=== PATIENT | male | born 1945 | race African-American/Black ===

== ENCOUNTER → 2017-02-27 | Outpatient (CLI) | payer MEDICARE, OTHER ==
[~2017-02-27] MED LIST: ASCO500C6 PO; BIDIL PO; CARV12.545 PO; FURO-152 PO; LOSA50TA20 PO; OMEG1CAP17 PO; RIVA20TA PO; SPIR25TA4 PO; TAMS0.4C31 PO
[2017-02-27 12:12] LABS: ANION GAP 11; CALCIUM 8.6 mg/dL (8.5-10.1); CARBON DIOXIDE 28 mEq/L (21-32); CHLORIDE 106 mEq/L (98-107); INDEX HEMOLYSI 1 (1-3); INDEX ICTERIC 1 (1-4); INDEX LIPEMIC 1 (1-3); MAGNESIUM 2.2 mg/dL (1.8-2.4); UREA NITROGEN BLOOD 15 mg/dL (7-21)
[2017-02-27 12:19] LABS: NT PRO B-TYPE NATRIURETIC PEP 3451 pg/mL (5-125); eGFR > 60 mL/min (>60)
== END | disposition home or self-care (01) ==
LOC: LAB 11:37
PROVIDERS: ATTEND Internal Medicine
DX: I42.9 Cardiomyopathy, unspecified (principal); I48.92 Unspecified atrial flutter
CPT/HCPCS: 36415; 80048; 83735; 83880

== ENCOUNTER 2018-02-28 07:55 | Emergency (ER) | payer MEDICARE, OTHER ==
[~2018-02-28] VITALS: Ht 180.3 cm; Wt 100.0 kg
[2018-02-28 09:36] LABS: BASOPHILS % 1.2 % (0.0-2.0); CHLORIDE 104 mEq/L (98-107); EOSINOPHILS % 5.1 % (0.0-5.0); HEMATOCRIT. 39.2 % (42.0-52.0); HEMOGLOBIN. 13.2 g/dL (14.0-18.0); LYMPHOCYTES % 31.9 % (20.0-50.0); MEAN CORPUSCULAR HEMOGLOBIN 31.1 pg (28.0-32.0); MEAN CORPUSCULAR VOLUME 92.1 fL (80.0-94.0); MEAN PLATELET VOLUME 9.5 fl (7.4-10.4); MONOCYTES % 12.2 % (2.0-8.0); NEUTROPHILS % 49.6 % (40.0-76.0); PLATELET 136 x1000/uL (130-400); RED BLOOD CELL COUNT 4.25 mill/uL (4.7-6.1); RED CELL DISTRIBUTION WIDTH 13.9 % (11.6-14.6)
[2018-02-28 09:36] LABS: CLARITY URINE CLEAR (CLEAR); COLOR URINE YELLOW (YELLOW); KETONES URINE NEGATIVE (NEGATIVE); LEUKOCYTE ESTERASE URINE NEGATIVE (NEGATIVE); NITRITE URINE NEGATIVE (NEGATIVE); OCCULT BLOOD URINE NEGATIVE (NEGATIVE); PROTEIN URINE NEGATIVE (NEGATIVE); SPECIFIC GRAVITY URINE 1.012 (1.005-1.030); UROBILINOGEN URINE 0.2 E.U./dL (0.2-1.0)
[2018-02-28 09:38] LABS: INR 1.5
[2018-02-28 11:58] VITALS: BP 133/66
== END 2018-02-28 12:01 | disposition home or self-care (01) ==
LOC: ER 07:55
DX: R10.9 Unspecified abdominal pain (principal); M62.830 Muscle spasm of back; I10 Essential (primary) hypertension; I48.91 Unspecified atrial fibrillation; I25.10 Atherosclerotic heart disease of native coronary artery without angina pectoris; K56.7 Ileus, unspecified; Z88.2 Allergy status to sulfonamides
CPT/HCPCS: 36415; 71045; 74176; 80053; 81003; 83690; 84484; 85025; 85610; 93005; 99285

== ENCOUNTER 2018-06-09 16:16 | Emergency (ER) | payer MEDICARE, OTHER ==
[~2018-06-09] VITALS: Ht 182.9 cm; Wt 91.0 kg
[~2018-06-09 16:16] MED LIST changes: -SPIR25TA4 PO; +SPIR25TA6 PO
[2018-06-09 17:25] LABS: BASOPHILS % 0.9 % (0.0-2.0); EOSINOPHILS % 4.2 % (0.0-5.0); HEMATOCRIT. 39.1 % (42.0-52.0); HEMOGLOBIN. 13.2 g/dL (14.0-18.0); LYMPHOCYTES % 35.1 % (20.0-50.0); MEAN CORPUSCULAR HEMOGLOBIN 31.2 pg (28.0-32.0); MEAN CORPUSCULAR VOLUME 92.2 fL (80.0-94.0); MEAN PLATELET VOLUME 9.3 fl (7.4-10.4); MONOCYTES % 11.6 % (2.0-8.0); NEUTROPHILS % 48.2 % (40.0-76.0); PLATELET 146 x1000/uL (130-400); RED BLOOD CELL COUNT 4.24 mill/uL (4.7-6.1); RED CELL DISTRIBUTION WIDTH 14.7 % (11.6-14.6)
[2018-06-09 17:28] LABS: CHLORIDE 103 mEq/L (98-107)
[2018-06-09 18:07] LABS: CLARITY URINE CLEAR (CLEAR); COLOR URINE YELLOW (YELLOW); KETONES URINE TRACE (NEGATIVE); LEUKOCYTE ESTERASE URINE NEGATIVE (NEGATIVE); NITRITE URINE NEGATIVE (NEGATIVE); OCCULT BLOOD URINE NEGATIVE (NEGATIVE); PROTEIN URINE NEGATIVE (NEGATIVE); UROBILINOGEN URINE 0.2 E.U./dL (0.2-1.0)
[2018-06-09] MEDS ORDERED: SODIUM CHLORIDE 0.9% 500 ML IV ONE (22:31)
[2018-06-09 23:06] LABS: BASOPHILS % 0.8 % (0.0-2.0); EOSINOPHILS % 4.9 % (0.0-5.0); HEMATOCRIT. 38.3 % (42.0-52.0); HEMOGLOBIN. 12.8 g/dL (14.0-18.0); LYMPHOCYTES % 39.6 % (20.0-50.0); MEAN CORPUSCULAR HEMOGLOBIN 31.1 pg (28.0-32.0); MEAN PLATELET VOLUME 9.3 fl (7.4-10.4); MONOCYTES % 12.9 % (2.0-8.0); NEUTROPHILS % 41.8 % (40.0-76.0); PLATELET 139 x1000/uL (130-400); RED BLOOD CELL COUNT 4.12 mill/uL (4.7-6.1); RED CELL DISTRIBUTION WIDTH 15.1 % (11.6-14.6)
[2018-06-09 23:10] LABS: CHLORIDE 103 mEq/L (98-107)
[2018-06-09 23:12] LABS: INR 1.3; PROTHROMBIN TIME 13.2 sec (9.1-11.1)
[2018-06-10 02:16] VITALS: BP 152/89
[2018-06-10] MEDS ORDERED: IOHEXOL-300 100 ML BOTTLE ONE (06:33)
== END 2018-06-10 02:19 | disposition home or self-care (01) ==
LOC: ER 17:02
DX: R10.9 Unspecified abdominal pain (principal); M79.1 Myalgia; I10 Essential (primary) hypertension; E78.00 Pure hypercholesterolemia, unspecified; Z79.899 Other long term (current) drug therapy; Z98.890 Other specified postprocedural states; Z88.2 Allergy status to sulfonamides; Z45.018 Encounter for adjustment and management of other part of cardiac pacemaker
CPT/HCPCS: 36415; 74177; 80053; 81003; 83690; 85025; 85610; 99285; J7030; J7040; Q9967

== ENCOUNTER 2019-08-06 20:56 | Emergency (ER) | payer MEDICARE, OTHER ==
[~2019-08-06] VITALS: Ht 185.4 cm; Wt 95.0 kg
[~2019-08-06 20:56] MED LIST changes: -LOSA50TA20 PO; +LOSA50TA41 PO
[2019-08-06] MEDS ORDERED: SODIUM CHLORIDE 0.9% 1,000 ML IV ONE (22:30)
[2019-08-06 23:14] LABS: HEMOGLOBIN 12.8 g/dL (14.0-18.0); MEAN CORPUSCULAR HEMOGLOBIN 31.5 pg (28.0-32.0); MEAN CORPUSCULAR VOLUME 93.8 fL (80.0-94.0); PLATELET 121 x1000/uL (130-400); RED BLOOD CELL COUNT 4.05 mill/uL (4.7-6.1); RED CELL DISTRIBUTION WIDTH 14.3 % (11.6-14.6)
[2019-08-06 23:18] LABS: CHLORIDE 109 mEq/L (98-107)
[2019-08-07 00:49] VITALS: BP 144/76
== END 2019-08-07 00:46 | disposition home or self-care (01) ==
LOC: ER 20:56
DX: I95.9 Hypotension, unspecified (principal); I13.10 Hypertensive heart and chronic kidney disease without heart failure, with stage 1 through stage 4 chronic kidney disease, or unspecified chronic kidney disease; N18.9 Chronic kidney disease, unspecified; R74.8 Abnormal levels of other serum enzymes; Z95.0 Presence of cardiac pacemaker
CPT/HCPCS: 36415; 80053; 85027; 96360; 99283; J7030

== ENCOUNTER 2022-12-12 15:53 | Emergency (ER) | payer MEDICARE, OTHER ==
[~2022-12-12] VITALS: Ht 182.9 cm; Wt 82.0 kg
[2022-12-12 17:14] LABS: EOSINOPHILS % 2.8 % (0.0-5.0); HEMATOCRIT. 43.3 % (42.0-52.0); HEMOGLOBIN. 14.2 g/dL (14.0-18.0); LYMPHOCYTES % 28.6 % (20.0-50.0); MEAN CORPUSCULAR HEMOGLOBIN 30.8 pg (28.0-32.0); MEAN CORPUSCULAR VOLUME 94.2 fL (80.0-94.0); MEAN PLATELET VOLUME 10.1 fl (7.4-10.4); NEUTROPHILS % 56.6 % (40.0-76.0); PLATELET 148 x1000/uL (130-400); RED BLOOD CELL COUNT 4.59 mill/uL (4.7-6.1); RED CELL DISTRIBUTION WIDTH 15.2 % (11.6-14.6)
[2022-12-12 17:22] LABS: CHLORIDE 107 mEq/L (98-107)
[2022-12-12 18:19] LABS: CLARITY URINE CLEAR (CLEAR); COLOR URINE YELLOW (YELLOW); KETONES URINE TRACE (NEGATIVE); LEUKOCYTE ESTERASE URINE NEGATIVE (NEGATIVE); NITRITE URINE NEGATIVE (NEGATIVE); OCCULT BLOOD URINE NEGATIVE (NEGATIVE); PROTEIN URINE TRACE (NEGATIVE); SPECIFIC GRAVITY URINE 1.023 (1.005-1.030)
[2022-12-12 20:00] VITALS: BP 141/82
== END 2022-12-12 23:21 | disposition home or self-care (01) ==
LOC: ER 15:53 → CANBEDREQ 12-14 09:37
DX: I95.9 Hypotension, unspecified (principal); R53.1 Weakness; I44.0 Atrioventricular block, first degree; I11.9 Hypertensive heart disease without heart failure; Z20.822 Contact with and (suspected) exposure to COVID-19; Z95.0 Presence of cardiac pacemaker
CPT/HCPCS: 36415; 70450; 71045; 80053; 81003; 83605; 83880; 84484; 85025; 87040; 87086; 87426; 87804; 93005; 99285; C9803

== ENCOUNTER 2025-04-15 18:27 | Emergency (ER) | payer MEDICARE, BC ==
[~2025-04-15] VITALS: Ht 177.8 cm; Wt 92.0 kg
[~2025-04-15 18:27] MED LIST changes: +AMIO100T4 PO; +ASCO500C19 PO; -ASCO500C6 PO; +CARV6.2548 PO; -FURO-152 PO; -LOSA50TA41 PO; +OMEG-118 MT; +SACU1TAB PO; +TEMA15CA MT
[2025-04-15 18:31] VITALS: O2SAT 97
[2025-04-15] MEDS: IBUPROFEN 600MG TABLET PO STA (20:18)
[2025-04-15] MEDS ORDERED: T3 PO (21:27)
[2025-04-15] MEDS: HYDROCODONE/ACETAMINOPHEN 5/325MG TABLET PO ONE (21:40)
[2025-04-15 21:41] VITALS: BP 98/71; PULSE 78; RESP 19; TEMP 36.6; O2SAT 97
== END 2025-04-15 21:45 | disposition home or self-care (01) ==
LOC: ER 18:27
DX: S22.32XA Fracture of one rib, left side, initial encounter for closed fracture (principal); I10 Essential (primary) hypertension; Z88.2 Allergy status to sulfonamides; Z79.899 Other long term (current) drug therapy; Z98.890 Other specified postprocedural states; W01.0XXA Fall on same level from slipping, tripping and stumbling without subsequent striking against object, initial encounter; Y93.89 Activity, other specified; Y92.89 Other specified places as the place of occurrence of the external cause; Y99.8 Other external cause status
CPT/HCPCS: 71250; 99284

== ENCOUNTER 2025-06-06 08:11 | Emergency (ER) | payer BC, MEDICARE ==
[~2025-06-06] VITALS: Ht 172.7 cm; Wt 75.0 kg
[~2025-06-06 08:11] MED LIST changes: -ASCO500C19 PO; +BENZ200C52 PO; -BIDIL PO; -CARV12.545 PO; +DOCU-422 PO; +EMPA10TA PO; +FURO40TA5 PO; +ISOS1TAB3 PO; -OMEG1CAP17 PO; -SACU1TAB PO; -SPIR25TA6 PO
[2025-06-06 08:15] VITALS: O2SAT 95
[2025-06-06] MEDS: IBUPROFEN 400MG TABLET PO ONE (08:53)
[2025-06-06] MEDS: HYDROCODONE/ACETAMINOPHEN 5/325MG TABLET PO ONE (08:53)
[2025-06-06] MEDS: LIDOCAINE 5% PATCH TOP SCH (08:56)
[2025-06-06] MEDS ORDERED: TRAM50TA3 MT ×2 (10:01→11:11)
[2025-06-06] MEDS ORDERED: ACET-2708 MT (10:01)
[2025-06-06] MEDS ORDERED: LIDO-53 TP (11:11)
[2025-06-06 11:28] VITALS: BP 118/83; PULSE 91; RESP 18; TEMP 36.6; O2SAT 95
== END 2025-06-06 11:27 | disposition home or self-care (01) ==
LOC: ER 08:11
DX: S22.31XA Fracture of one rib, right side, initial encounter for closed fracture (principal); I11.0 Hypertensive heart disease with heart failure; I50.9 Heart failure, unspecified; Z79.899 Other long term (current) drug therapy; Z79.84 Long term (current) use of oral hypoglycemic drugs; Z79.01 Long term (current) use of anticoagulants; Z88.2 Allergy status to sulfonamides; W01.0XXA Fall on same level from slipping, tripping and stumbling without subsequent striking against object, initial encounter; Y93.89 Activity, other specified; Y92.89 Other specified places as the place of occurrence of the external cause; Y99.8 Other external cause status
CPT/HCPCS: 71101; 99284